=== PATIENT | male | born 1995 | race Caucasian/White ===

== ENCOUNTER 2016-11-10 12:12 | Emergency (ER) | payer OTHER ==
[2016-11-10 13:22] VITALS: BP 124/71
== END 2016-11-10 14:28 | disposition left against medical advice (07) ==
LOC: UCCORT 12:12
DX: R05 Cough (principal); Z53.20 Procedure and treatment not carried out because of patient's decision for unspecified reasons

== ENCOUNTER 2016-11-10 20:07 | Emergency (ER) | payer MEDICAID, OTHER ==
[2016-11-10 20:57] VITALS: BP 140/71
--- NOTE | 2016-11-10 21:52 | UC ---
Throat Pain/Nasal Horace HPI - HPI Summary HPI Summary: 21 year old male with 3 days of sore throat, fever, cough, and headache Has not taken anything for his symptoms He missed work tonight and needs a work note - History of Current Complaint Chief Complaint: UCGeneralIllness Stated Complaint: SORE THROAT,COUGH Time Seen by Provider: 11/10/16 21:34 Hx Obtained From: Patient Onset/Duration: Sudden Onset, Lasting Days - 3, Still Present Severity: Mild Cough: Nonproductive Associated Signs & Symptoms: Positive: Dysphagia, Nasal Discharge, Fever. Negative: FB Sensation, Drooling, Wheezing, Hoarseness, Sinus Discomfort, Vomiting, Rash Related History: Smoking - Epiglottits Risk Factors Epiglottis Risk Factors: Negative - Allergies/Home Medications Allergies/Adverse Reactions: Allergies Allergy/AdvReac Type Severity Reaction Status Date / Time No Known Allergies Allergy Verified 11/10/16 20:57 PMH/Surg Hx/FS Hx/Imm Hx Previously Healthy: Yes Endocrine History Of: Denies: Diabetes Cardiovascular History Of: Denies: Cardiac Disorders Respiratory History Of: Reports: Asthma - as child - Surgical History Surgical History: Yes Surgery Procedure, Year, and Place: appy 09/2014 - Family History Known Family History: Negative: Hypertension, Diabetes - Social History Occupation: Employed Part-time Lives: With Family Alcohol Use: None Substance Use Type: None Substance Use Comment - Amount & Last Used: occ. usage Smoking Status (MU): Never Smoked Tobacco Cessation Counseling: Patient Advised to Stop Review of Systems Constitutional: Fever Skin: Negative Eyes: Negative ENT: Sore Throat, Ear Ache, Nasal Discharge Respiratory: Cough Cardiovascular: Negative Gastrointestinal: Negative Genitourinary: Negative Motor: Negative Neurovascular: Negative Musculoskeletal: Negative Neurological: Headache Psychological: Negative All Other Systems Reviewed And Are Negative: Yes Physical Exam Triage Information Reviewed: Yes Appearance: No Pain Distress, Well-Nourished, Ill-Appearing - mildly Vital Signs: Initial Vital Signs Temp 97.7 F 11/10/16 20:52 Pulse 79 11/10/16 20:52 Resp 16 11/10/16 20:52 BP 140/71 11/10/16 20:52 Pulse Ox 100 11/10/16 20:52 Vital Signs Reviewed: Yes Eyes: Positive: Conjunctiva Clear. Negative: Discharge ENT: Positive: Hearing grossly normal, Pharyngeal erythema, TMs normal. Negative: Nasal congestion, Nasal drainage Neck: Positive: Supple, Nontender Respiratory: Positive: Lungs clear, Normal breath sounds. Negative: Crackles, Wheezing Cardiovascular: Positive: RRR, No Murmur Musculoskeletal: Positive: Strength Intact, ROM Intact Neurological: Positive: Alert, Muscle Tone Normal Psychological: Positive: Age Appropriate Behavior - pleasant and cooperative Skin: Negative: rashes, breakdown Throat Pain/Nasal Course/Dx - Course Course Of Treatment: Rapid Strep - negative - Differential Dx/Diagnosis Differential Diagnosis/HQI/PQRI: Pharyngitis, URI Provider Diagnoses: UPPER RESPIRATORY INFECTION. PHARYNGITIS Discharge - Discharge Plan Condition: Stable Disposition: HOME Patient Education Materials: Pharyngitis (ED), Upper Respiratory Infection (ED) Forms: *Work Release Referrals: No Primary Care Phys,NOPCP [Primary Care Provider] - [facility] [Outside] Additional Instructions: Take Tylenol 650mg - 1000 mg every 6 - 8 hours as needed for pain or fever Take Ibuprofen 600mg every 6 hour as needed for pain or fever
== END 2016-11-10 22:01 | disposition home or self-care (01) ==
LOC: UCCORT 20:07
DX: J06.9 Acute upper respiratory infection, unspecified (principal); J02.9 Acute pharyngitis, unspecified
CPT/HCPCS: 87651; 99211; G0463

== ENCOUNTER 2017-04-25 18:46 | Emergency (ER) | payer OTHER | END 2017-04-25 20:07 | disposition left against medical advice (07) | LOC: UCCORT 18:46 | DX: M25.561 Pain in right knee (principal); Z53.21 Procedure and treatment not carried out due to patient leaving prior to being seen by health care provider ==